=== PATIENT | male | born 1995 | race Caucasian/White ===

== ENCOUNTER → 2016-09-17 | Outpatient (CLI) | payer OTHER ==
[~2016-09-17] VITALS: Ht 175.3 cm; Wt 93.0 kg
[~2016-09-17] MED LIST: NS 1,000 ML IV SCH; PROPOFOL 200 MG/20 ML VIAL As Ordered ONE
[2016-09-17 12:46] VITALS: BP 114/64
--- NOTE | 2016-09-17 12:51 | ROOR ---
Patient Name: Wenceslao Cobb Procedure Date: 09/17/2016 12:26 PM Date of : 1995 Age: 20 Room: [facility] Gender: Male Note Status: Finalized Procedure: Colonoscopy to Cecum + Biopsies Indications: Rectal bleeding Providers: Cirilo Turner MD Referring MD: TOSHIA HARRIS MD Requesting Provider: Medicines: Monitored Anesthesia Care Complications: No immediate complications. Procedure: Pre-Anesthesia Assessment: - The heart rate, respiratory rate, oxygen saturations, blood pressure, adequacy of pulmonary ventilation, and response to care were monitored throughout the procedure. The Colonoscope was introduced through the anus and advanced to the cecum, identified by appendiceal orifice and ileocecal valve. The colonoscopy was performed without difficulty. The patient tolerated the procedure well. The quality of the bowel preparation was excellent. Findings: The perianal and digital rectal examinations were normal. Non-bleeding internal hemorrhoids were found during retroflexion. The hemorrhoids were moderate, small and Grade I (internal hemorrhoids that do not prolapse). A localized area of mildly erythematous mucosa was found in the rectum. Biopsies were taken with a cold forceps for histology. No other significant abnormalities were identified in a careful examination of the remainder of the colon. The exam was otherwise without abnormality on direct and retroflexion views. Impression: - Non-bleeding internal hemorrhoids. - Erythematous mucosa in the rectum. Biopsied. - The examination was otherwise normal on direct and retroflexion views. - The exam was otherwise normal to the cecum. Recommendation: - Patient has a contact number available for emergencies. The signs and symptoms of potential delayed complications were discussed with the patient. Return to normal activities tomorrow. Written discharge instructions were provided to the patient. - High fiber diet. - Discharge patient to home. - Continue present medications. - Await pathology results. - Telephone GI clinic for pathology results in 1 week. - Repeat colonoscopy at age 51 for screening purposes. - Return to referring physician. - Preparation H cream: Apply externally as necessary. - The findings and recommendations were discussed with the patient's family. Cirilo Turner MD Cirilo Turner MD 09/17/2016 12:51:20 PM This report has been signed electronically. Number of Addenda: 0 Note Initiated On: 09/17/2016 12:26 PM Estimated Blood Loss: Estimated blood loss: none.
== END | disposition home or self-care (01) ==
LOC: M OPP 11:37
PROVIDERS: ATTEND Internal Medicine Gastroenterology
DX: K62.89 Other specified diseases of anus and rectum (principal); K64.0 First degree hemorrhoids; K62.5 Hemorrhage of anus and rectum; G93.2 Benign intracranial hypertension; Z88.2 Allergy status to sulfonamides

== ENCOUNTER 2017-04-27 11:40 | Emergency (ER) | payer OTHER ==
[~2017-04-27] VITALS: Ht 177.8 cm; Wt 88.6 kg
[2017-04-27 13:43] LABS: BLOOD UREA NITROGEN 13 MG/DL (7-18); CREATININE FOR GFR 1.22 MG/DL (0.70-1.30)
--- NOTE | 2017-04-27 13:44 | REP ---
LUMBAR SPINE, FIVE VIEWS: HISTORY: Back pain. There is no acute fracture or subluxation. The intervertebral discs are normal in height. The facet joints are normal in appearance. There is spinal bifida occulta of S1. IMPRESSION: There is no acute fracture or subluxation. Signed by Trev Davison MD 04/27/2017 01:52 P
[2017-04-27] MEDS ORDERED: ISOVUE-370 76% 100ML VIAL (Q9967) As Ordered ONE (13:46)
--- NOTE | 2017-04-27 14:27 | REP ---
CT ABDOMEN AND PELVIS WITH CONTRAST: TECHNIQUE: Axial contrast enhanced images from the lung bases to the pubic symphysis using 100 mL Isovue 370 intravenous contrast material with multiplanar reformations. The visualized lung bases are clear. The liver, spleen, adrenals, pancreas and kidneys appear normal. There is no abdominal aortic aneurysm. There is no adenopathy. There is on free air or free fluid. No bowel wall thickening is seen. There is no anterior abdominal wall defect. The appendix is normal. I see no pelvic mass. Urinary bladder appears intact. The visualized osseous structures appear intact. IMPRESSION: Negative CT abdomen and pelvis with IV contrast. Signed by Marek Washington MD 04/28/2017 07:54 P
[2017-04-27] MEDS ORDERED: IBUP80TA PO (14:41)
[2017-04-27] MEDS ORDERED: CYCL10TA PO (14:43)
[2017-04-27] MEDS ORDERED: IBUPROFEN 800 MG TAB PO ONE (14:45)
[2017-04-27 14:52] VITALS: BP 144/66
== END 2017-04-27 14:53 | disposition home or self-care (01) ==
LOC: M ED 11:40
DX: M54.5 Low back pain (principal); S80.02XA Contusion of left knee, initial encounter; S30.1XXA Contusion of abdominal wall, initial encounter; S80.211A Abrasion, right knee, initial encounter; V48.5XXA Car driver injured in noncollision transport accident in traffic accident, initial encounter; Y92.410 Unspecified street and highway as the place of occurrence of the external cause; Y93.9 Activity, unspecified; Y99.9 Unspecified external cause status; G93.2 Benign intracranial hypertension; Z88.2 Allergy status to sulfonamides
CPT/HCPCS: 72110; 74177; 82565; 84520; 99283; Q9967